=== PATIENT | male | born 1940 | race Caucasian/White ===

== ENCOUNTER 2019-07-27 19:38 | Inpatient (IN) ==
[2019-07-27] MEDS ORDERED: HYDROMET LIQUID PO ONE (20:08)
[2019-07-27 20:49] LABS: BASO# 0.03 X1000 (0.0-0.2); BASO% 0.2 % (0.0-0.8); EOS# 0.09 X1000 (0.0-0.7); EOS% 0.5 % (0.0-10.0); HEMATOCRIT 30.8 % (42.0-52.0); HEMOGLOBIN 9.3 g/dL (14.0-18.0); IMM GRAN# 0.04 X1000 (0.0-0.04); IMM GRAN% 0.2 % (0.0-0.5); LYMPH# 6.66 X1000 (1.2-3.4); LYMPH% 40.1 % (20.5-51.1); MCH 24.9 PG (27-31); MCHC 30.2 g/dL (33-37); MCV 82.4 FL (81-99); MONO# 0.96 X1000 (0.11-0.59); MONO% 5.8 % (1.7-9.3); MPV 10.1 FL (7.4-10.4); NEUT# 8.84 X1000 (1.4-6.5); NEUT% 53.2 % (42.2-75.2); PLT 321 X1000 (130-400); RBC 3.74 XMIL (4.7-6.1); RDW 18.2 % (11.5-14.5); WBC 16.62 X1000 (4.8-10.8)
[2019-07-27 20:59] LABS: INR 1.34; PROTIME 17.3 Seconds (11.0-16.0); PTT 50.5 Seconds (22.3-41.8)
[2019-07-27 21:01] LABS: AGAP 13; ALBUMIN 3.5 g/dL (3.5-5.0); ALKALINE PHOSPHATASE 90 U/L (32-122); BUN 19 mg/dL (8-22); CALCIUM 8.4 mg/dL (8.8-10.2); CHLORIDE 106 mmol/L (98-107); COSMO 285; ESTIMATED GFR > 60; GLUCOSE 128 mg/dL (70-104); GOT 19 U/L (10-34); GPT 10 U/L (10-44); POTASSIUM 3.8 mmol/L (3.5-5.1); SODIUM 141 mmol/L (136-145); TCO2 22 mmol/L (25-35); TOTAL PROTEIN 6.3 g/dL (6.3-8.3)
--- NOTE | 2019-07-27 21:05 | Diag Imaging Result Doc PS360 ---
EXAM: CHEST-2 VIEWS INDICATION: hemoptysis TECHNIQUE: 2 views COMPARISON: 10/17/2017 FINDINGS: There are very dense airspace consolidations in the left upper lobe in the lingula as well as the right lower lobe at the base of the lung. There is also probably consolidation in the left lower lobe near the base. There are small pleural effusions bilaterally. There is no evidence of pneumothorax. There appears to be focal scarring at the periphery of the right lower lung zone. There has been interval CABG. Cardiac silhouette is unremarkable. IMPRESSION: 1.Multilobar airspace consolidation, most significant in the left upper lobe as described. 2.Bilateral small effusions. Electronically signed by Gustavo Freeman 07/27/2019 9:03 PM
[2019-07-27] MEDS ORDERED: ROCEPHIN 1 GM in NS 50 ML IV ONE (21:28)
[2019-07-27] MEDS ORDERED: ZITHROMAX PO ONE (21:28)
--- NOTE | 2019-07-27 23:35 | PROVIDER DOCUMENTATION ---
This chart was entered by Aysha Freeman Scribe, acting as scribe for Ed Pool MD. HPI-Respiratory General - General Chief Complaint: Cough Stated Complaint: COUGHING UP BLOOD Time Seen by Provider: 07/27/19 19:49 Source: patient Allergies/Adverse Reactions: Patient Allergies Allergy/AdvReac Type Severity Reaction Status Date / Time No Known Allergies Allergy Verified 12/15/15 19:20 Home Medications: Home Medication List Medication Instructions Recorded Confirmed Last Taken Type Clonidine [Catapres] 0.2 mg PO BID #60 tablet 12/15/15 07/27/19 Unknown Rx Furosemide [Lasix] 40 mg PO DAILY 12/15/15 07/27/19 Unknown History Hydralazine [Apresoline] 100 mg PO DAILY 12/15/15 07/27/19 Unknown History Metoprolol [Lopressor] 25 mg PO BID 12/15/15 07/27/19 Unknown History Potassium Chloride 10 meq PO DAILY 12/15/15 07/27/19 Unknown History ATORVAstatin [Lipitor] 20 mg PO DAILY 07/27/19 07/27/19 Unknown History Apixaban [Eliquis] 1 tab PO DIRECTED 07/27/19 07/27/19 Unknown History Aspirin 81 mg PO DAILY 07/27/19 07/27/19 Unknown History Calcitriol 0.25 mg PO DIRECTED 07/27/19 07/27/19 Unknown History Fexofenadine [Aleja] 180 mg PO DAILY 07/27/19 07/27/19 Unknown History Montelukast Sodium 10 mg PO DAILY 07/27/19 07/27/19 Unknown History - History of Present Illness-Resp Nature of Presenting Problem: 79 yowm c/o sore throat, dry cough for 3-4 weeks and hemoptysis started 100 today and nausea for 1 hr. pt saw pcp 3-4 weeks ago when symptoms first started, was on antibiotics w/no relief. pt has hx of chf and arthritis. sx on heart valve. no new meds. no allergies and nonsmoker. pt on elaquis and aspirin, did not takes doses at 1930. pt went to [facility] 1 yr ago for sco0pe of throat and helped somewhat, but symptoms came back. Severity in ED: reports: moderate Onset/Duration: reports: 4-6 hours ago, other (3-4 weeks ago dry cough, sore throat) Timing: reports: still present Cough Quality/Degree: reports: productive cough, blood streaked sputum Associated Symptoms: reports: cough, sore throat, other (hemoptysis) Similar Symptoms Previously?: Yes Recently seen or treated by another doctor?: Yes (3-4 weeks ago pcp ) Review of Systems - Adult - REVIEW OF SYSTEMS - ADULT Constitutional: reports: no symptoms reported. denies: chills, fever, fatique Eyes: reports: no symptoms reported Ears, Nose, Mouth & Throat: reports: see HPI, throat pain. denies: ear pain, hoarseness, throat swelling Cardiovascular: reports: no symptoms reported Respiratory: reports: see HPI, cough, hemoptysis. denies: excessive sputum production, wheezing Gastrointestinal: reports: see HPI, nausea. denies: abdominal pain, diarrhea, vomiting Genitourinary: reports: no symptoms reported Musculoskeletal: reports: no symptoms reported Integumentary: reports: no symptoms reported Neurological: reports: no symptoms reported Psychiatric: reports: no symptoms reported Endocrine: reports: no symptoms reported Hematologic/Lymphatic: reports: no symptoms reported Allergic/Immunologic: reports: no symptoms reported All Other Systems: Reviewed and Negative Past History - Adult - PAST MEDICAL HISTORY-ADULT Review of Records: reports: Nursing Assessment Review, Medications Reviewed, Social history reviewed & non-contributory. Major Childhood Illnesses: reports: denies history Cardiovascular: reports: CAD, HTN, [place] Respiratory: reports: denies history Gastrointestinal: reports: denies history Obstetrical/Gynecological: reports: denies history Genitourinary: reports: kidney stones Musculoskeletal: reports: denies history Neurological: reports: denies history Endocrine/Immune: reports: denies history Other Conditions: reports: denies history - PRIOR SURGERIES/PROCEDURES Surgical/Procedure History: reports: cardiac stent - IMMUNIZATION STATUS Childhood Immunizations: See Nurse Assessment Flu Vaccine: See Nurse Assessment - FAMILY HISTORY Family History: reviewed, not pertinent - SOCIAL HISTORY Smoking: non-smoker Substance Use: none/never Physical Exam-General - PHYSICAL EXAM-ADULT Initial Vital Signs Reviewed: Yes - CONSTITUTIONAL General Appearance: alert, no apparent distress. negative: anxious, lethargic, slow to respond - EYES Eyes: PERRL/EOMI, pink conjunctivae - HEAD, EARS, NOSE, MOUTH & THROAT HENMT: normocephalic/atraumatic, moist mucous membranes, normal ENT inspection, pharynx normal. negative: pharyngeal erythema, tonsillar exudate - NECK Neck: non-tender, full range of motion, supple, normal inspection - RESPIRATORY Respiratory: chest non-tender, lungs clear, normal breath sounds, no pleuratic chest pain, no respiratory distress, no accessory muscle use. negative: respiratory distress, decreased breath sounds, accessory muscle use, wheezing - CARDIOVASCULAR Cardiovascular: normal peripheral pulses, regular rate, rhythm, no edema, no gallop, no JVD, systolic murmur (conjection murmure 3/6). negative: no murmur, diastolic murmur, extra beats, friction rub - GASTROINTESTINAL (ABDOMEN) Abdominal Exam: normal bowel sounds, non tender, soft, no organomegaly, no pu lsatile mass. negative: rigid, rebound, tenderness - LYMPHATIC Lymphatic: no adenopathy - MUSCULOSKELETAL Back Exam: normal inspection Extremity: normal range of motion, non-tender, normal inspection Peripheral Pulses: radial (R): 2+, radial (L): 2+ - SKIN Integumentary: normal color, normal turgor, warm/dry - NEUROLOGIC Neurologic: grossly normal, no motor/sensory deficits - PSYCHIATRIC Psych/Mental Status: normal mood/affect, normal thought content, normal thought process, oriented x 3 Progress - PLAN OF CARE/RESULTS Progress/Plan/Lab Results: Vital Signs - 8 hr 07/27/19 19:41 07/27/19 22:51 Temperature 98.9 F 98.9 F Pulse Rate 72 28 L Respiratory Rate 20 28 H Blood Pressure 189/49 199/80 O2 Sat by Pulse Oximetry 95 95 Laboratory Results - last 24 hr 07/27/19 07/27/19 07/27/19 20:34 20:34 20:34 WBC 16.62 H RBC 3.74 L Hgb 9.3 L Hct 30.8 L MCV 82.4 MCH 24.9 L MCHC 30.2 L RDW Std Deviation 18.2 H Plt Count 321 MPV 10.1 Immature Gran % (Auto) 0.2 Neut % (Auto) 53.2 Lymph % (Auto) 40.1 [place] % (Auto) 5.8 Eos % (Auto) 0.5 Baso % (Auto) 0.2 Immature Gran # (Auto) 0.04 Neut # (Auto) 8.84 H Lymph # (Auto) 6.66 H [place] # (Auto) 0.96 H Eos # (Auto) 0.09 Baso # (Auto) 0.03 PT INR PTT (Actin FS) D-Dimer, Quantitative 2.93 H Sodium 141 Potassium 3.8 Chloride 106 Carbon Dioxide 22 L Anion Gap 13 BUN 19 Creatinine 1.0 Estimated GFR/1.73 m2 > 60 BUN/Creatinine Ratio 19 Glucose 128 H Calculated Osmolality 285 Calcium 8.4 L Total Bilirubin 0.60 AST 19 ALT 10 Alkaline Phosphatase 90 Total Protein 6.3 Albumin 3.5 Globulin 3.0 Albumin/Globulin Ratio 1.0 07/27/19 20:34 WBC RBC Hgb Hct MCV MCH MCHC RDW Std Deviation Plt Count MPV Immature Gran % (Auto) Neut % (Auto) Lymph % (Auto) [place] % (Auto) Eos % (Auto) Baso % (Auto) Immature Gran # (Auto) Neut # (Auto) Lymph # (Auto) [place] # (Auto) Eos # (Auto) Baso # (Auto) PT 17.3 H INR 1.34 PTT (Actin FS) 50.5 H D-Dimer, Quantitative Sodium Potassium Chloride Carbon Dioxide Anion Gap BUN Creatinine Estimated GFR/1.73 m2 BUN/Creatinine Ratio Glucose Calculated Osmolality Calcium Total Bilirubin AST ALT Alkaline Phosphatase Total Protein Albumin Globulin Albumin/Globulin Ratio Orders Category Date Time Status CHEST-2 VIEWS [RAD] Stat Exams 07/27/19 20:[address] THORAX W/WO CONTRAST [CT] Stat Exams 07/27/19 21:20 Taken CBC WITH DIFF [HEME] Stat Lab 07/27/19 20:34 Completed COMPREHENSIVE METABOLIC PANEL [CHEM] Stat Lab 07/27/19 20:34 Completed D-DIMER [COAG] Stat Lab 07/27/19 20:34 Completed PROTIME WITH INR [COAG] Stat Lab 07/27/19 20:34 Completed PTT [COAG] Stat Lab 07/27/19 20:34 Completed Azithromycin [Zithromax] Med 07/27/19 21:28 Discontinued 500 mg PO NOW ONE CefTRIAXONE [Rocephin] 1 gm Med 07/27/19 21:28 Discontinued 0.9% Sodium Chloride Inj [Ns] 50 ml IV NOW Hydrocodone/Homatropine [Hydromet Liquid] Med 07/27/19 20:08 Discontinued 10 ml PO NOW ONE Result Diagrams: 07/27/19 20:34 07/27/19 20:34 - CT/MRI 1 CT Study: other (chest) Impression: Abnormal, See EMR Report (Impression: 1. Probable multifocal PNU in the left lung, most prominent in the left upper lobe. 2. Bilateral effusions. 3. Additional findings as above.) - CONSULTS/PCP/HOSPITALIST Notification #1 *Consult/PCP/Hospitalist*: [place] Time Discussed: 23:27 Consult Disposition: Admit Departure - Departure Date of Disposition Decision: 07/27/19 Time of Disposition Decision: 23:30 DIAGNOSIS: Cough with hemoptysis Pneumonia Qualifiers: Pneumonia type: due to unspecified organism Laterality: left Lung location: upper lobe of lung Qualified Code(s): J18.1 - Lobar pneumonia, unspecified organism Disposition: ADMITTED INPATIENT 09 Certified Medical Emergency: Emergent Condition: Good Referrals and Follow-Ups: Eren Mercado [Primary Care Provider] - - Critical Care Note This patient required my direct & personal management of CC.: No Attestation - Physician/ TAYLA Attestation Patient care was provided by Advanced Practice Provider:: No The physician spent face to face time with patient:: Yes Advanced Practice Provider documentation review:: Supervising physician onsite and consulted in the evaluation and care of this patient. The physician did have a face to face encounter with the patient. This chart was documented by the indicated scribe, (Aysha Freeman Scribe) and accurately reflects the services I performed and decisions made by me, Ed Pool MD, as attested by the provider's signature.
[2019-07-28] MEDS: DUONEB (A & A) INH SCH ×6 (03:33→23:18)
--- NOTE | 2019-07-28 06:06 | Diag Imaging Result Doc PS360 ---
EXAM: CT THORAX W/WO CONTRAST HISTORY: chest mass, hemoptysis TECHNIQUE: CT chest with and without intravenous contrast COMPARISON: None. FINDINGS: There are small bilateral pleural effusions. The one on the left measures 3.6 cm posteriorly and inferiorly in the midline where as the one on the right measures 1.8 cm. No aortic aneurysm or dissection. Moderate atherosclerosis. Heart is borderline mildly prominent. No enlarged mediastinal nodes. There are several calcified hilar nodes with scattered granuloma. There are dense infiltrates in the left upper lobe with air bronchograms. There are smaller infiltrates in the right upper lobe. Atelectasis to both lower lobes and the right middle lobe. Limited images through the upper abdomen reveal a small left renal cyst and upper pole calyceal stone measuring 2 mm. There are scattered hepatic and splenic granuloma. IMPRESSION: 1.Pneumonia most pronounced in the left upper lobe 2.Small bilateral pleural effusions with basilar atelectasis 3.Atherosclerosis with mild cardiomegaly 4.There is evidence of a prior granulomatous infection 5.A preliminary report was given at 11:04 PM on 07/27/2019 This exam was performed using automated exposure control, adjustment of mA or kV according to patient size, and/or use of iterative reconstruction technique. Electronically signed by Karsten Briscoe 07/28/2019 6:04 AM
[2019-07-28] MEDS ORDERED: ELIQUIS PO SCH (07:30)
[2019-07-28] MEDS: APRESOLINE PO SCH (08:02)
[2019-07-28] MEDS: ZITHROMAX PO SCH (08:02)
[2019-07-28] MEDS: LIPITOR PO SCH (08:02)
[2019-07-28] MEDS: ALLEGRA PO SCH (08:03)
[2019-07-28] MEDS: LASIX PO SCH (08:03)
[2019-07-28] MEDS: ROCEPHIN 1 GM in NS 50 ML IV SCH ×2 (08:03→21:01)
[2019-07-28] MEDS: CATAPRES PO SCH ×3 (08:03→17:20)
[2019-07-28] MEDS: ASPIRIN PO SCH (08:03)
[2019-07-28] MEDS: LOPRESSOR PO SCH ×3 (08:03→17:20)
[2019-07-28] MEDS: SINGULAIR PO SCH (08:12)
[2019-07-28] MEDS: KLOR-CON PO SCH (08:15)
[2019-07-28] MEDS: ELIQUIS PO SCH ×2 (08:15→21:02)
[2019-07-28] MEDS ORDERED: ROBITUSSIN PO PRN (13:35)
[2019-07-28] MEDS: ROBITUSSIN PO PRN ×2 (14:26→21:58)
[2019-07-28] MEDS ORDERED: ROBITUSSIN PO SCH (17:00)
--- NOTE | 2019-07-28 21:03 | HISTORY AND PHYSICAL ---
CHIEF COMPLAINT: Cough with blood-tinged sputum. HISTORY OF PRESENT ILLNESS: The patient is a very pleasant 79-year-old male who currently is on Eliquis secondary to open heart surgery a year and a half ago. Notes that he had been feeling fine until approximately 3 or 4 days ago. He started coughing with congestion, increased work of breathing. He started coughing up blood this morning and therefore he came to the ER. ALLERGIES: No known drug allergies. MEDICATIONS: Catapres 0.2 b.i.d., Lasix, hydralazine 100 daily, Eliquis 2.5 b.i.d., calciferol, aspirin, metoprolol 25 b.i.d., Lipitor 20 daily. PAST MEDICAL HISTORY: Coronary artery disease, hypertension, history of heart attack, history of kidney stones. He has had cardiac stenting and valve replacement. REVIEW OF SYSTEMS: As noted above. Three to four weeks of increased cough, but he has been feeling fine until about 3 days ago where symptoms began worsening. He started to have low-grade fevers, shortness of breath, increased work of breathing, dyspnea on exertion. Denies any chest pains or palpitation. Denies fevers, chills, dysuria, frequency, urgency, hesitancy, polyuria or polydipsia. Denies constipation, melena, hematochezia, hematemesis or hematuria. Denies any increased bleeding, although he does note blood-tinged sputum that started this morning. FAMILY HISTORY: Noncontributory. PHYSICAL EXAMINATION: GENERAL: Patient is awake, alert and oriented. He is in no current respiratory distress. VITAL SIGNS: Temperature 98 degrees, pulse 72, respiratory rate 20, BP 189/49, saturation 95% on 2 L. HEENT: Normocephalic. NECK: Supple. CARDIOVASCULAR: Regular rate with a 3/6 systolic ejection murmur. CHEST: Decreased but equal. No current crackles, no rhonchi, no wheezing, no accessory muscle usage, although decreased breath sounds bilaterally. ABDOMEN: Soft, nondistended, nontender. EXTREMITIES: Moves all extremities. NEUROLOGIC: No focal changes. ASSESSMENT: 1. Pneumonia with hemoptysis. 2. Hypercoagulable secondary to Eliquis. 3. Elevated D-dimer 2.9 secondary to his valve replacement. 4. Valve replacement. 5. Known coronary artery disease. 6. Hypertension. 7. Leukocytosis. 8. Anemia of chronic disease. 9. Sepsis secondary to left upper lobe pneumonia. PLAN: We are going to admit patient to the hospital. We are going to continue his Eliquis as his blood counts are stable; however, discussed with patient that if his bleeding worsens and his blood count drops, we certainly would have to stop Eliquis at that point. We will continue his home medications, place him on antibiotics, breathing treatments, oxygen and we will follow. cc: Julio C Malik MD
[2019-07-29] MEDS: DUONEB (A & A) INH SCH ×6 (03:40→23:06)
[2019-07-29 05:49] LABS: HEMATOCRIT 24.7 % (42.0-52.0); HEMOGLOBIN 7.5 g/dL (14.0-18.0); MCH 25.3 PG (27-31); MCHC 30.4 g/dL (33-37); MCV 83.2 FL (81-99); MPV 10.2 FL (7.4-10.4); RBC 2.97 XMIL (4.7-6.1); WBC 15.3 X1000 (4.8-10.8)
[2019-07-29 06:04] LABS: AGAP 13; ALKALINE PHOSPHATASE 77 U/L (32-122); BUN 20 mg/dL (8-22); CALCIUM 8.2 mg/dL (8.8-10.2); CHLORIDE 105 mmol/L (98-107); COSMO 285; CREATININE 0.9 mg/dL (0.7-1.2); ESTIMATED GFR > 60; GLUCOSE 124 mg/dL (70-104); GOT 18 U/L (10-34); GPT 9 U/L (10-44); MAGNESIUM 2.1 mg/dL (1.5-2.7); POTASSIUM 3.3 mmol/L (3.5-5.1); SODIUM 141 mmol/L (136-145); TCO2 23 mmol/L (25-35); TOTAL PROTEIN 5.8 g/dL (6.3-8.3)
--- NOTE | 2019-07-29 07:12 | Diag Imaging Result Doc PS360 ---
EXAM: CHEST-2 VIEWS 07/29/2019 HISTORY: hypoxia TECHNIQUE: PA and lateral chest COMMENT: There is dense alveolar opacity in the right lower lobe and throughout most of the left lung. The latter has worsened with respect to the apex since 07/27/2019. There is somewhat less pleural fluid on the left than on the previous study however. IMPRESSION: Bilateral pneumonia particularly in the left upper lobe. Improved left pleural effusion. Electronically signed by Wade Traore 07/29/2019 7:09 AM
[2019-07-29] MEDS ORDERED: KLOR-CON PO ONE (07:51)
[2019-07-29] MEDS: APRESOLINE PO SCH (08:35)
[2019-07-29] MEDS: KLOR-CON PO SCH (08:35)
[2019-07-29] MEDS: LIPITOR PO SCH (08:36)
[2019-07-29] MEDS: ZITHROMAX PO SCH (08:36)
[2019-07-29] MEDS: LOPRESSOR PO SCH ×3 (08:36→17:14)
[2019-07-29] MEDS: ASPIRIN PO SCH (08:36)
[2019-07-29] MEDS: SINGULAIR PO SCH (08:38)
[2019-07-29] MEDS: ELIQUIS PO SCH ×2 (08:38→21:10)
[2019-07-29] MEDS: LASIX PO SCH (08:38)
[2019-07-29] MEDS: ALLEGRA PO SCH (08:38)
[2019-07-29] MEDS: ROCEPHIN 1 GM in NS 50 ML IV SCH ×2 (08:49→21:10)
[2019-07-29] MEDS ORDERED: BENADRYL PO ONE (08:51)
[2019-07-29] MEDS ORDERED: NS 500 ML IV ONE (08:51)
[2019-07-29] MEDS: CATAPRES PO SCH ×3 (09:00→17:14)
[2019-07-29] MEDS ORDERED: LASIX IV SCH (09:00)
[2019-07-29] MEDS: CLINDAMYCIN 900 MG/D5W 900 MG/50 ML IVPB IV SCH ×2 (09:39→22:47)
[2019-07-29] MEDS: TYLENOL PO PRN (11:25)
[2019-07-29] MEDS: ROBITUSSIN PO PRN ×3 (12:24→21:40)
[2019-07-29] MEDS ORDERED: BLISTEX MEDICATED BERRY LIP BALM TOP PRN (21:18)
--- NOTE | 2019-07-30 01:53 | PROGRESS NOTE ---
DATE: 07/29/2019 SUBJECTIVE: Patient notes he is still coughing, still congested, still having hemoptysis. Denies any other bleeding or bruising. Denies fevers or chills. Notes that he is tired. Did not sleep well last night. PHYSICAL EXAMINATION: Vital Signs: Temperature 98.4 degrees, pulse 71, respiratory rate 18, BP 156/54. General: Patient is awake, alert, currently in mild respiratory distress. HEENT: Normocephalic. Neck: Supple. Cardiovascular: Regular rate. Positive murmur. Chest: Decreased breath sounds. No crackles. No wheezing currently. Patient is coughing significantly on exam. Abdomen: Soft, nondistended. Extremities: Moves all extremities. Neurologic: No changes. ASSESSMENT: 1. Pneumonia with hemoptysis. 2. Hypocoagulable secondary to Eliquis. 3. Valve replacement for which he needs to stay on blood thinners. 4. Elevated D-dimer secondary to his valve replacement. 5. Known coronary artery disease. 6. Hypertension. 7. Leukocytosis. 8. Anemia. His hemoglobin and hematocrit have actually dropped from 9 and 30 on admission to 7 and 24. Therefore, we are going to type, cross and transfuse. PLAN: We are going to stop his azithromycin, change to clindamycin. Continue Rocephin, certainly may need to adjust that as well. We will type, cross, transfuse. Continue breathing treatments. We will add Acapella to see if we can hopefully help him cough this up. Discussed him that if his blood count continues to drop again that he certainly will need to stop blood thinners at that point. cc: Julio C Malik MD
[2019-07-30] MEDS: DUONEB (A & A) INH SCH ×6 (03:22→23:21)
[2019-07-30] MEDS: ROBITUSSIN PO PRN ×3 (03:38→20:07)
[2019-07-30 06:44] LABS: HEMATOCRIT 31.9 % (42.0-52.0); HEMOGLOBIN 9.7 g/dL (14.0-18.0); MCH 25.1 PG (27-31); MCHC 30.4 g/dL (33-37); MCV 82.6 FL (81-99); MPV 10.6 FL (7.4-10.4); RBC 3.86 XMIL (4.7-6.1); RDW 17.4 % (11.5-14.5); WBC 17.35 X1000 (4.8-10.8)
[2019-07-30 06:56] LABS: AGAP 14; ALBUMIN 3.5 g/dL (3.5-5.0); ALKALINE PHOSPHATASE 87 U/L (32-122); BUN 23 mg/dL (8-22); CALCIUM 8.6 mg/dL (8.8-10.2); CHLORIDE 103 mmol/L (98-107); COSMO 285; ESTIMATED GFR > 60; GLUCOSE 138 mg/dL (70-104); GOT 27 U/L (10-34); GPT 14 U/L (10-44); MAGNESIUM 2.1 mg/dL (1.5-2.7); POTASSIUM 3.5 mmol/L (3.5-5.1); SODIUM 140 mmol/L (136-145); TCO2 23 mmol/L (25-35); TOTAL PROTEIN 6.5 g/dL (6.3-8.3)
[2019-07-30] MEDS: ZOFRAN IV PRN (08:01)
[2019-07-30] MEDS: SINGULAIR PO SCH (08:02)
[2019-07-30] MEDS: LASIX PO SCH (08:02)
[2019-07-30] MEDS: ASPIRIN PO SCH (08:02)
[2019-07-30] MEDS: LIPITOR PO SCH (08:02)
[2019-07-30] MEDS: ALLEGRA PO SCH (08:02)
[2019-07-30] MEDS: APRESOLINE PO SCH (08:02)
[2019-07-30] MEDS: CATAPRES PO SCH ×3 (08:02→16:30)
[2019-07-30] MEDS: CLINDAMYCIN 900 MG/D5W 900 MG/50 ML IVPB IV SCH ×2 (08:03→16:30)
[2019-07-30] MEDS: LOPRESSOR PO SCH ×3 (08:03→16:29)
[2019-07-30] MEDS: KLOR-CON PO SCH (08:03)
[2019-07-30] MEDS: ELIQUIS PO SCH ×2 (08:03→20:07)
[2019-07-30] MEDS: ROCEPHIN 1 GM in NS 50 ML IV SCH (08:03)
[2019-07-30 10:08] LABS: INR 1.46; PROTIME 18.5 Seconds (11.0-16.0)
[2019-07-30 10:09] LABS: PTT 47.2 Seconds (22.3-41.8)
[2019-07-30] MEDS: LACTULOSE PO PRN (12:08)
[2019-07-30] MEDS: MAXIPIME 1 GM in NS 50 ML IV SCH (12:08)
--- NOTE | 2019-07-30 12:13 | PROGRESS NOTE ---
DATE: 07/30/2019 SUBJECTIVE: Patient notes that he is starting to feel a little bit better. He is still having some significant coughing, but notes that it is actually improved from admission. Notes that he is still coughing up blood, but this too also has improved. Low-grade fever this morning. Denies any headaches or blurred vision. Denies chest pain. Notes that shortness of breath is also improving. OBJECTIVE: Vital signs: Temp 100.4 degrees, T max, pulse 73, respiratory rate 18, BP 171/64. General: Patient is awake, alert. He is in no current respiratory distress. He is lying in the bed. His color actually appears to be improving. HEENT: Normocephalic, atraumatic, PERRL. Neck: Supple. No JVD. Cardiovascular: Regular rate. Positive murmur. Chest: Improved air movement. No crackles. No wheezing. The patient actually was not noted to cough while I was in the room today. Abdomen: Soft, nondistended. Extremities: Moves all extremities. Neurologic: No changes. ASSESSMENT: 1. Leukocytosis. White count remains around 17. 2. Anemia, multifactorial. Patient has a history of leukemia in which he does not produce as much red blood cells, per the patient. He also is having some hemoptysis. We transfused him 2 units yesterday. His hemoglobin and hematocrit has remained stable since then at 9 and 31. 3. Pneumonia with hemoptysis. 4. Aortic valve replacement, currently on Eliquis. 5. Hypertension. 6. Others. PLAN: We are going to continue the patient in the hospital. Continue to follow. Antibiotics, breathing treatments. Further orders as needed. Hopefully, he will continue to improve and can discharge home over the next 2 or 3 days. cc: Julio C Malik MD
--- NOTE | 2019-07-30 15:41 | Diag Imaging Result Doc PS360 ---
EXAM: CT THORAX W/O CONTRAST 07/30/2019 HISTORY: pneumonia TECHNIQUE: This exam was performed using automated exposure control, adjustment of mA or kV according to patient size, and/or use of iterative reconstruction technique. COMMENT: The current study is compared with the previous study of 07/27/2019. There are bilateral pleural effusions. These are slightly worse than on the previous examination. There is alveolar opacity present in the left upper lobe and both lower lobes. There is also alveolar opacification of portions of the right middle lobe. The latter was not present at the time the previous study. There is markedly worsened consolidation present in the left lower lobe compared to the previous study and there is more extensive groundglass opacification in the peripheral portions of the left upper lobe. IMPRESSION: Worsened pneumonia and pleural effusions. Electronically signed by Wade Traore 07/30/2019 3:39 PM
[2019-07-31] MEDS: MAXIPIME 1 GM in NS 50 ML IV SCH ×3 (00:05→23:53)
[2019-07-31] MEDS: ROBITUSSIN PO PRN ×4 (00:46→21:17)
[2019-07-31] MEDS: CLINDAMYCIN 900 MG/D5W 900 MG/50 ML IVPB IV SCH ×3 (01:00→18:12)
[2019-07-31] MEDS: DUONEB (A & A) INH SCH ×6 (03:25→23:09)
[2019-07-31 05:45] LABS: HEMATOCRIT 28.1 % (42.0-52.0); HEMOGLOBIN 8.5 g/dL (14.0-18.0); MCH 25.3 PG (27-31); MCHC 30.2 g/dL (33-37); MCV 83.6 FL (81-99); MPV 10.5 FL (7.4-10.4); RBC 3.36 XMIL (4.7-6.1); RDW 17.6 % (11.5-14.5); WBC 15.65 X1000 (4.8-10.8)
[2019-07-31 06:04] LABS: AGAP 14; ALBUMIN 2.9 g/dL (3.5-5.0); ALKALINE PHOSPHATASE 91 U/L (32-122); BUN 27 mg/dL (8-22); CALCIUM 8.3 mg/dL (8.8-10.2); CHLORIDE 104 mmol/L (98-107); COSMO 288; CREATININE 1.1 mg/dL (0.7-1.2); ESTIMATED GFR > 60; GLUCOSE 132 mg/dL (70-104); GOT 26 U/L (10-34); GPT 14 U/L (10-44); POTASSIUM 3.5 mmol/L (3.5-5.1); SODIUM 141 mmol/L (136-145); TCO2 22 mmol/L (25-35)
[2019-07-31] MEDS ORDERED: ROCALTROL PO SCH (09:00)
[2019-07-31] MEDS: KLOR-CON PO SCH (11:16)
[2019-07-31] MEDS: LASIX PO SCH (11:16)
[2019-07-31] MEDS: ALLEGRA PO SCH (11:16)
[2019-07-31] MEDS: SINGULAIR PO SCH (11:16)
[2019-07-31] MEDS: ELIQUIS PO SCH ×2 (11:16→20:10)
[2019-07-31] MEDS: CATAPRES PO SCH ×3 (11:17→18:12)
[2019-07-31] MEDS: LOPRESSOR PO SCH ×3 (11:17→18:12)
[2019-07-31] MEDS: LIPITOR PO SCH (11:17)
[2019-07-31] MEDS: APRESOLINE PO SCH (11:17)
[2019-07-31] MEDS: ASPIRIN PO SCH (11:17)
[2019-07-31] MEDS: ZOFRAN IV PRN (18:12)
[2019-07-31] MEDS: TYLENOL PO PRN (21:17)
[2019-08-01] MEDS: CLINDAMYCIN 900 MG/D5W 900 MG/50 ML IVPB IV SCH ×2 (00:28→08:11)
[2019-08-01] MEDS: ROBITUSSIN PO PRN ×4 (01:20→17:20)
[2019-08-01] MEDS: DUONEB (A & A) INH SCH ×5 (03:12→23:45)
[2019-08-01] MEDS: LACTULOSE PO PRN (05:55)
[2019-08-01 06:44] LABS: HEMOGLOBIN 8.1 g/dL (14.0-18.0); MCH 25.2 PG (27-31); MCV 84.1 FL (81-99); MPV 10.1 FL (7.4-10.4); RBC 3.21 XMIL (4.7-6.1); RDW 17.7 % (11.5-14.5); WBC 16.53 X1000 (4.8-10.8)
[2019-08-01 07:04] LABS: AGAP 13; ALKALINE PHOSPHATASE 91 U/L (32-122); BUN 31 mg/dL (8-22); CALCIUM 8.6 mg/dL (8.8-10.2); CHLORIDE 104 mmol/L (98-107); COSMO 288; CREATININE 1.1 mg/dL (0.7-1.2); ESTIMATED GFR > 60; GLUCOSE 167 mg/dL (70-104); GOT 32 U/L (10-34); GPT 19 U/L (10-44); MAGNESIUM 2.4 mg/dL (1.5-2.7); POTASSIUM 3.5 mmol/L (3.5-5.1); SODIUM 139 mmol/L (136-145); TCO2 22 mmol/L (25-35); TOTAL PROTEIN 6.1 g/dL (6.3-8.3)
--- NOTE | 2019-08-01 07:13 | PROGRESS NOTE ---
DATE: 07/31/2019 SUBJECTIVE: Patient notes that his cough is improving. He actually only had to get a new cup once last night, which is a big improvement from before. He is still having a productive cough, still having some blood-tinged sputum, although it seems to be improving. Denies any fevers or chills. PHYSICAL EXAMINATION: Vital Signs: Temperature 98.5, pulse 75, respiratory rate 18, blood pressure 115/57. General: Patient is awake, alert, currently in no respiratory distress. HEENT: Normocephalic. Neck: Supple. Cardiovascular: Regular rate. Chest: No crackles, no wheezing. Better air movement. Abdomen: Soft, nondistended. Extremities: Moves all extremities. Neurologic: No changes. ASSESSMENT: 1. Pneumonia with hemoptysis. 2. Anemia, stable at 8 and 28. 3. Leukocytosis, stable, still at 15. 4. Known coronary artery disease. 5. Sepsis, resolved. 6. Aortic valve replacement, currently on Eliquis. PLAN: Patient's CT yesterday was a little bit worse. We had recently changed to clindamycin. We stopped his Rocephin and started cefepime. He does seem to be a little bit better today. We are going to continue breathing treatments and we will follow. We will continue Eliquis due to the valve replacement. cc: Julio C Malik MD
[2019-08-01] MEDS: LASIX PO SCH (08:10)
[2019-08-01] MEDS: KLOR-CON PO SCH (08:10)
[2019-08-01] MEDS: ALLEGRA PO SCH (08:11)
[2019-08-01] MEDS: APRESOLINE PO SCH (08:11)
[2019-08-01] MEDS: ELIQUIS PO SCH (08:11)
[2019-08-01] MEDS: ASPIRIN PO SCH (08:11)
[2019-08-01] MEDS: LIPITOR PO SCH (08:11)
[2019-08-01] MEDS: CATAPRES PO SCH ×3 (08:11→18:40)
[2019-08-01] MEDS: LOPRESSOR PO SCH ×3 (08:11→18:40)
[2019-08-01] MEDS: SINGULAIR PO SCH (08:11)
[2019-08-01] MEDS: MAXIPIME 1 GM in NS 50 ML IV SCH (12:17)
[2019-08-01] MEDS ORDERED: VANCOMYCIN IV PER PHARMACY MISC SCH (12:45)
[2019-08-01] MEDS ORDERED: VANCOMYCIN 2,000 MG in NS 500 ML IV SCH (14:00)
--- NOTE | 2019-08-01 18:29 | PROGRESS NOTE ---
DATE: 08/01/2019 SUBJECTIVE: The patient reports that his cough and shortness of breath are getting worse. He continues to have hemoptysis. According to him, it is more bloody today. Denies any other complaints. OBJECTIVE: Vital Signs: Temperature 98.1 degrees, heart rate 72, respiratory rate 20, blood pressure 112/51, O2 saturation 95% on 2 L nasal cannula. General: This is a chronically ill- appearing, 79-year-old male, lying in bed, in no acute distress. Cardiovascular: S1, S2 heard. No murmurs, gallops, or rubs. Regular rate and rhythm. Respiratory: Minimal coarse breath sounds noted in both pulmonary bases. Patient not using any accessory muscles or having work of breathing. Abdomen: Soft, nondistended, nontender to palpation. Bowel sounds present. No organomegaly. Extremities: No clubbing, cyanosis, or edema. Peripheral pulses present in both legs. Neurological: The patient is alert, oriented x3. Moves all 4 extremities. LABORATORY DATA: White cell count 16.53, hemoglobin 8.1, hematocrit 27.0, platelets 336,000 with BMP that is basically showing normal renal function. Calcium 8.6. ASSESSMENT AND PLAN: 1. Community-acquired pneumonia with hemoptysis. The patient has been started on clindamycin and ceftriaxone, but unfortunately this patient is not getting better. The CT of the chest shows worsening pneumonia. Considering that he is getting more short of breath and imaging that is not improving, I will transfer this patient to [facility] for the evaluation by pulmonary. The patient has been changed to cefepime and will stop clindamycin and start vancomycin per pharmacy. We will check an ABG and an x-ray PA and lateral and we will go from there. 2. Hemoptysis. At this point, the patient is on Eliquis. He is taking that medication for this bovine aortic valve replacement. I am going to check an echocardiogram if not a recent one has been order. We will continue to monitor. 3. Anemia. Hemoglobin has been dropping slowly from 2 days ago from 9.7 the day before yesterday, 8.5 yesterday and today 8.1. He has been transfused 2 units of blood. We will continue to monitor. 4. Coronary artery disease. At this point, the patient is stable not complaining of any chest pain. We will continue to monitor. 5. Disposition. As we mentioned before, we will transfer this patient to [facility] for further evaluation by Pulmonary. cc: Alfie Dunaway MD
[2019-08-01] MEDS ORDERED: ZOFRAN IV PRN (20:07)
[2019-08-01] MEDS ORDERED: TYLENOL PO PRN (20:07)
[2019-08-01] MEDS ORDERED: ROBITUSSIN PO PRN (20:09)
[2019-08-01] MEDS ORDERED: LACTULOSE PO PRN (20:14)
[2019-08-01] MEDS ORDERED: LASIX IV SCH (20:15)
[2019-08-01] MEDS ORDERED: BLISTEX MEDICATED BERRY LIP BALM TOP PRN (20:16)
[2019-08-01] MEDS ORDERED: ELIQUIS PO SCH (21:00)
--- NOTE | 2019-08-01 22:21 | PROGRESS NOTE ---
DATE: 08/01/2019 ADDENDUM TO PREVIOUSLY DICTATED PROGRESS NOTE: Mr. Gonzalez was transferred from [facility] for ongoing hemoptysis and bilateral multifocal pneumonia. SUBJECTIVE: He continues to have ongoing hemoptysis. He denies any chest pain. He is not feeling short of breath at rest, but he states otherwise he is feeling terrible. We discussed about hemoptysis, holding his nighttime Eliquis. I also assured him that I will call education assistant in this hospital or contact his education assistant outpatient. VITALS: Currently, temperature of 98.6 degrees, pulse 78, respiratory rate 18, blood pressure 150/60, saturating 92% on 3 L nasal cannula. OBJECTIVE: He has fresh blood in the back of the throat. He has bilateral crackles diffusely of lung mireles. He is not having any wheezes. ASSESSMENT: 1. Acute hypoxic respiratory failure due to bilateral multifocal pneumonia. 2. Hemoptysis in the setting of Eliquis use and bilateral pneumonia. 3. Acute blood loss anemia due to hemoptysis. 4. 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 On baby aspirin and Eliquis. History of CHF. 5. History of chronic lymphoid leukemia. PLAN: I will hold his nighttime Eliquis dose considering his ongoing hemoptysis. I will transfer him to a PVC unit. I will contact Cardiology tomorrow morning. His antibiotic regimen has been broadened to intravenous vancomycin and cefepime, which I will continue him on. Plan of care discussed with him. His questions have been answered. He is in agreement. I had a discussion about code status with him and he mentions that he would not want any chest compression, shock, intubation, or ventilator, and we will honor his wishes. His code status has been changed to DNR level 1. cc: MD NIR Barone
[2019-08-02] MEDS ORDERED: MAXIPIME 1 GM in NS 50 ML IV SCH ×2
[2019-08-02] MEDS: DUONEB (A & A) INH SCH ×7 (03:40→23:50)
[2019-08-02 06:10] LABS: BASO# 0.02 X1000 (0.0-0.2); BASO% 0.1 % (0.0-0.8); EOS# 0.28 X1000 (0.0-0.7); EOS% 1.7 % (0.0-10.0); HEMATOCRIT 27.3 % (42.0-52.0); HEMOGLOBIN 8.4 g/dL (14.0-18.0); IMM GRAN# 0.09 X1000 (0.0-0.04); IMM GRAN% 0.6 % (0.0-0.5); LYMPH# 6.08 X1000 (1.2-3.4); LYMPH% 37.6 % (20.5-51.1); MCH 25.8 PG (27-31); MCHC 30.8 g/dL (33-37); MONO# 0.91 X1000 (0.11-0.59); MONO% 5.6 % (1.7-9.3); MPV 10.2 FL (7.4-10.4); NEUT# 8.81 X1000 (1.4-6.5); NEUT% 54.4 % (42.2-75.2); PLT 374 X1000 (130-400); RBC 3.25 XMIL (4.7-6.1); RDW 18.1 % (11.5-14.5); WBC 16.19 X1000 (4.8-10.8)
[2019-08-02 06:26] LABS: AGAP 14; ALBUMIN 2.8 g/dL (3.5-5.0); BUN 33 mg/dL (8-22); CALCIUM 8.7 mg/dL (8.8-10.2); CHLORIDE 102 mmol/L (98-107); COSMO 285; ESTIMATED GFR > 60; GLUCOSE 110 mg/dL (70-104); PHOSPHORUS 3.8 mg/dL (2.7-4.5); POTASSIUM 3.9 mmol/L (3.5-5.1); SODIUM 139 mmol/L (136-145); TCO2 23 mmol/L (25-35)
[2019-08-02 06:37] LABS: EOS 2 % (1-10); LYMPHS 37 % (21-51); MONO 4 % (1-9); SEGS 57 % (42-75)
[2019-08-02] MEDS ORDERED: LASIX IV ONE ×2 (06:48→20:00)
--- NOTE | 2019-08-02 07:39 | EKG Report ---
Test Performed on : 08/02/2019 06:09:51 AM Test Reason : Baseline heart rhythm Blood Pressure : / mmHG Vent. Rate : 077 BPM Atrial Rate : 077 BPM P-R Int : 182 ms QRS Dur : 098 ms QT Int : 400 ms P-R-T Axes : 013 033 052 degrees QTc Int : 452 ms Sinus rhythm. with premature atrial complexes. with aberrant conduction. Nonspecific T wave abnormality Abnormal ECG When compared with ECG of 18-OCT-2017 13:24, Vent. rate has increased BY 30 BPM Confirmed by Sole GUTIERREZ, Daniel ([id number]) on 08/02/2019 8:12:07 AM
[2019-08-02] MEDS: ZITHROMAX 500 MG/NS 500 MG/250 ML IVPB IV SCH (07:56)
[2019-08-02] MEDS: SINGULAIR PO SCH (08:03)
[2019-08-02] MEDS: KLOR-CON PO SCH (08:03)
[2019-08-02] MEDS: LIPITOR PO SCH (08:03)
[2019-08-02] MEDS: CATAPRES PO SCH ×3 (08:04→17:14)
[2019-08-02] MEDS: LOPRESSOR PO SCH ×3 (08:04→17:14)
[2019-08-02] MEDS: ZOFRAN IV PRN (08:09)
--- NOTE | 2019-08-02 08:22 | Diag Imaging Result Doc PS360 ---
EXAM: CHEST-PORTABLE INDICATION: Dyspnea TECHNIQUE: One view COMPARISON: 07/29/2019 FINDINGS: There has been worsening of dense airspace consolidation on the right. Specifically, there is more extensive consolidation on the right in the mid lung zone. Consolidation throughout most of the left lung is again noted and may also be slightly worse. Cardiac silhouette is stable. IMPRESSION: Interval worsening of dense infiltrates bilaterally. Electronically signed by Gustavo Freeman 08/02/2019 8:20 AM
[2019-08-02 08:37] LABS: URINE SOURCE CATH
[2019-08-02 08:55] LABS: BILIRUBIN URINE NEGATIVE (NEGATIVE); BLOOD URINE TRACE (NEGATIVE); COLOR YELLOW; GLUCOSE URINE NEGATIVE (NEGATIVE); KETONE URINE TRACE mg/dL (NEGATIVE); LEUKOCYTES URINE NEGATIVE (NEGATIVE); NITRITE URINE NEGATIVE (NEGATIVE); PH URINE 5.5; PROTEIN URINE 30 mg/dL (NEGATIVE); SP GRAVITY URINE 1.013; TURBIDITY URINE CLEAR (CLEAR); UROBILINOGEN URINE NORMAL (NORMAL)
[2019-08-02 08:56] LABS: UR EPITHELIAL CELLS <10 /HPF (<10); URINE BACTERIA NEGATIVE /HPF; URINE RBC <10 /HPF (<10); URINE WBC <10 /HPF (<10)
[2019-08-02] MEDS ORDERED: ASPIRIN PO SCH (09:00)
[2019-08-02] MEDS ORDERED: LASIX PO SCH (09:00)
[2019-08-02] MEDS ORDERED: APRESOLINE PO SCH (09:00)
[2019-08-02] MEDS ORDERED: ROCALTROL PO SCH (09:00)
[2019-08-02] MEDS: ALLEGRA PO SCH (09:37)
--- NOTE | 2019-08-02 10:01 | PROGRESS NOTE ---
DATE: 08/02/2019 INTERVAL HISTORY: Patient was transferred to PVC unit. He did not have any other overnight events. SUBJECTIVE: Mr. Osborne states he is feeling more short of breath in the morning time than he did in the afternoon time, and he appears tachypneic. He continues to have hemoptysis. He denies any chest pain. He denies nausea, vomiting, abdominal pain. We discussed about worsening lung examination, consulting pulmonology and cardiology, holding Eliquis, adding more antibiotics, starting him on IV diuresis, and getting echocardiogram. He understood it. We also discussed about starting him on high oxygen mask if his oxygen levels are decreased, and he agrees currently. VITALS: Currently, temperature of 98.5 degrees, pulse 80, respiratory rate 21, blood pressure 170/59. His oxygen saturation is 85% on 4 L nasal cannula. PHYSICAL EXAMINATION: He appears tachypneic and in mild distress. Oral cavity is moist. He had some flecks of hemoptysis on the posterior pharyngeal wall. He has no wheeze or rhonchi. He has diffuse inspiratory crackles, especially affecting infrascapular region. Cardiovascular: S1, S2 normal. Appears irregularly irregular. He has a systolic murmur affecting the right second intercostal space. No rub or gallop. Abdomen: Soft, nontender. No hepatojugular reflex. He has bilateral lower extremity edema extending up to knee level. Input and output only had -500 mL yesterday. LABS: Suggestive of leukocytosis, normocytic anemia, normal platelet count. He does have elevation of BUN and creatinine. No positive microbiological data. IMAGING: Electrocardiogram was performed which had a sinus rhythm with premature atrial complexes with aberrant conduction. ASSESSMENT AND PLAN: 1. Acute hypoxic respiratory failure due to bilateral multifocal pneumonia and lung infiltrate/alveolar hemorrhage. Continue intravenous vancomycin and cefepime. Add Azithromycin. Follow up repeat sputum culture results, urine streptococcus antigen, beta glucan levels. Increase amount of oxygen and give a stat dose of Lasix. I discussed that with the nurse. 2. Acute congestive heart failure exacerbation with worsening pedal edema. Increase Lasix to intravenous. Follow up with echocardiogram. He had a history of coronary artery bypass graft and bovine aortic valve replacement in 2018. I am continuing his home aspirin, atorvastatin, metoprolol, and hydralazine. We will adjust medications according to his course. I am holding his Eliquis. 3. Hemoptysis leading to acute blood loss anemia, status post 2 units of packed red blood cells. He continues to have ongoing hemoptysis. This is likely in the setting of a multifocal pneumonia, use of aspirin with Eliquis and suspected alveolar hemorrhage. The indication for Eliquis is not entirely clear to me. He denies known history of deep venous thrombosis or pulmonary embolism. He does not have metal prosthetic heart valve. He does not entirely remember if he has any paroxysmal abnormal heart rhythm. Considering his ongoing hemoptysis and worsening respiratory status, I am holding Eliquis and I will consult the cardiology team. I will also follow up with an echocardiogram. 4. History of chronic lymphoid leukemia. 5. Disposition. The patient's condition is tenuous, considering his respiratory status. He has explicitly mentioned that his code status is a Do Not Resuscitate level 1. I will continue to monitor him in the [facility]. I discussed with him about his tenuous condition and worsening lung status, and answered all of his questions. cc: Ifeanyi Tesfaye MD MTDD
[2019-08-02 11:39] LABS: ALLEN TEST YES; BE 1.2 mmoll (-3.0-3.0); BLOOD TYPE ARTERIAL; HCO3-(ACT) 25.8 mmoll (20.0-26.0); METHB 0.7 % (0.0-1.5); O2(CT) 12.1 mL/dL (15.0-23.0); O2HB 93.9 % (95.0-99.0); PCO2(98.6) 35 mmHg (35-45); PO2(98.6) 66 mmHg (60-100); SAMPLE BLOOD; SAO2 96.4 % (95.0-100.0); THB 9.1 g/dL (11.5-17.4); pH(98.6) 7.46 (7.35-7.45)
[2019-08-02 11:41] LABS: MODALITY VENTIMASK
[2019-08-02 13:48] LABS: INR 1.42; PROTIME 17.6 Seconds (11.0-16.0)
[2019-08-02] MEDS ORDERED: LASIX IV SCH (14:00)
[2019-08-02] MEDS ORDERED: MAXIPIME 2 GM/NS 2 GM/100 ML IVPB IV SCH ×2 (15:00→21:00)
[2019-08-02] MEDS ORDERED: VANCOMYCIN 2,000 MG in NS 500 ML IV SCH (15:00)
--- NOTE | 2019-08-02 15:23 | PROGRESS NOTE ---
DATE: 08/02/2019 I evaluated the patient at bedside again. Apparently, patient had worsening shortness of breath and pulmonary team had reevaluated the patient and was started on BiPAP. I was informed that he was taking Eliquis, likely from paroxysmal atrial fibrillation. I evaluated him at bedside. He is comfortable on BiPAP. His [id number] is at bedside. We discussed about alveolar hemorrhage, worsening pneumonia, pulmonary edema. We discussed about transferring him to ICU. They understand his critical condition. I answered all of their questions. I will also get stat coagulations and have a discussion with Pulmonology if he would be a candidate for any fresh frozen plasma. I will also get connective tissue cascade. cc: Ifeanyi Tesfaye MD
--- NOTE | 2019-08-02 19:05 | CONSULTATION ---
DATE OF CONSULTATION: 08/02/2019 IMPRESSION: 1. Progressive respiratory failure. 2. Suspect bilateral pneumonia with infiltrates progressing despite initial antibiotic coverage. Given history of chronic lymphocytic leukemia, consider more unusual pathogens. 3. Aortic valve disorder. Patient is status post aortic valve replacement with bioprosthesis in October 2017. He also had coronary artery bypass at that surgery. 4. Atherosclerotic coronary disease. Patient is status post coronary artery bypass grafting x2 vessels with his aortic valve replacement in October 2017. 5. Postoperative atrial fibrillation. Patient has continued on Eliquis since his cardiac surgery. 6. Hypertension. 7. Hyperlipidemia. RECOMMENDATIONS: 1. Agree with Pulmonary consultation. 2. Suggest also Infectious Disease consultation. 3. Limited diuresis until further data from cardiovascular standpoint. Echocardiography to be obtained. 4. Favor transferring patient to intensive care unit given his progressive respiratory difficulties in the face of treatment. HISTORY: This 79-year-old, white male, with past history of aortic valve disorder, atherosclerotic coronary disease, previous coronary artery bypass surgery with aortic valve replacement (bioprosthesis) in October 2017, hypertension, hyperlipidemia, and chronic lymphocytic leukemia, was admitted through [facility] several days ago, with progressive dyspnea and hemoptysis. He had bilateral infiltrates and was started on treatment for pneumonia. He has not improved, and is in fact, progressively getting worse, and was transferred over to [facility]. He has had fairly striking hemoptysis. He relates that he had tendency for shortness of breath, particularly exertional shortness of breath for about a week, and then started having hemoptysis. There has been no orthopnea nor angina. He has had some low-grade fever noted since admission, but he was unaware of this prior to hospitalization. He denies any chills. There has been no chest pain. He has been on Eliquis since his cardiac surgery because of postoperative atrial fibrillation. PAST MEDICAL HISTORY: 1. Aortic valve disorder/aortic stenosis. Patient is status post aortic valve replacement with bioprosthesis along with coronary artery bypass surgery in October 2017. 2. Atherosclerotic coronary disease. Patient is status post coronary artery bypass grafting x2 vessels, October 2017, along with aortic valve replacement. 3. Hypertension. 4. Hyperlipidemia. 5. Chronic lymphocytic leukemia. 6. Nephrolithiasis. 7. History of hepatitis A in the past. PAST SURGICAL HISTORY: Also includes knee replacement and appendectomy. ALLERGIES: He has no known drug allergies. MEDICATIONS PRIOR TO ADMISSION: As listed. SOCIAL HISTORY: He is . He is retired. He does not smoke. He does not use alcohol. FAMILY HISTORY: Negative for premature coronary disease. There is a family history of coronary disease with older age of clinical onset. REVIEW OF SYSTEMS: Pulmonary: Noteworthy for dyspnea and hemoptysis. There has been no chest pain. Gastrointestinal: Noncontributory. Constitutional: Recent fevers, otherwise negative. Remainder of review of systems negative/noncontributory with 14-total systems reviewed. PHYSICAL EXAMINATION: General: This is an older white male with increased respiratory rate despite oxygen per mask. Vital Signs: Blood pressure 171/69, heart rate 83, respiratory rate 30, oxygen saturation 95% on Venturi mask at 50%. HEENT: Extraoculars movements appear intact. Mucous membranes are moist. Neck: Supple. Jugular venous distention suggests jugular venous pressure around 8 to 10. There are no carotid bruits. Chest: Auscultation of chest reveals bilateral inspiratory crackles. Cardiac: Regular rate and rhythm with a grade 2/6 crescendo/decrescendo systolic murmur at the right upper sternal border and apex, as well as the left sternal border. Gallop could not be appreciated. Abdomen: Soft. Bowel sounds audible. Extremities: Mild pretibial edema slightly worse on the right lower extremity. Neurologic: Alert and fully oriented. Speech is fluent. He moves all 4 extremities equally well. Skin: Warm and dry. Psychiatric: Mildly anxious. PERTINENT DATA: Twelve-lead EKG demonstrates atrial fibrillation with occasional premature ventricular, aberrantly conducted complex, and nonspecific T-wave abnormality. LABORATORY DATA: Includes white blood cell count 16.19, hematocrit 27.3, hemoglobin 8.4, platelet count 374,000. Sodium 139, potassium 3.9, chloride 102, carbon dioxide 23, BUN 33, creatinine 1.2, glucose 110, albumin 2.8. cc: Bridger Kee MD
--- NOTE | 2019-08-02 19:42 | INFECTIOUS DISEASE CONSULT REP ---
DATE: 08/02/2019 CONCLUSION: The patient is wearing a BiPAP mask and unfortunately I cannot get a history from him. The information I did get was through the computer. Conclusion: The patient has bilateral consolidations. I think this could be due to an infection. The patient may have an immunoglobulin deficiency. RECOMMENDATIONS: I agree with treating the patient with azithromycin, cefepime and vancomycin. I have increased the dose of cefepime to 2 g IV every 8 hours and I have ordered immunoglobulin levels. DISCUSSION: The patient was doing well until approximately 3 to 4 days before he came into the hospital. He started coughing with congestion and he was dyspneic. He also noted that he has been coughing up blood. ALLERGIES: He has no known drug allergies. MEDICATIONS: Taken at home include Catapres, Lasix, hydralazine, Eliquis, calciferol, metoprolol and Lipitor. PAST MEDICAL HISTORY: Positive for coronary artery disease, hypertension, myocardial infarction, kidney stones. PAST SURGICAL HISTORY: Patient has had cardiac stenting and valve replacement. REVIEW OF SYSTEMS: When I attempted to take a review of systems from the patient, he did not want to give me answers by shaking his head and he is unable to talk because he is wearing a BiPAP mask. FAMILY HISTORY: Said to be noncontributory. CURRENT LABORATORY AND RADIOGRAPHIC FINDINGS: The patient's CBC shows a white count of 16,190, hemoglobin 8.4, platelet count 374,000. The patient's creatinine is 1. GFR is greater than 60. Blood gases show a pH of 7.46, a PO2 of 66, and a pCO2 of 35. Blood cultures are negative. Sputum grew a normal maryan. Repeat sputum culture is pending. Chest x-ray shows worsening bilateral consolidation. Urinalysis showed no white cells or bacteria. PHYSICAL EXAMINATION: Vital Signs: Temperature is 97.4 degrees, pulse 59, respirations 16, blood pressure is 134/65. Patient weighs 199 pounds. General: This is an ill-appearing elderly male. As mentioned above, he is wearing a BiPAP mask and he still looks somewhat dyspneic. Head/eyes/ears/nose/throat: The patient has a BiPAP mask. He was able to hear my spoken words. He appeared to be able to see near objects. I could not get a really good look into the patient's mouth. However, there was some tissue beside him and he had been spitting up secretions and they were sanguinous. Neck: No meningismus. Lungs: Clear to auscultation. Cardiovascular: Heart rate is regular with a systolic murmur. Abdomen: Soft and not tender. Neurologic: The patient is awake. He did move his extremities to request. He does not have a tremor. Integument: No rash noted. Thank you for the consult. cc: Alexi Zavaleta MD
[2019-08-02] MEDS: MAXIPIME 1 GM in NS 50 ML IV SCH (20:58)
[2019-08-02] MEDS ORDERED: MAXIPIME 2 GM in NS 50 ML IV SCH (21:00)
--- NOTE | 2019-08-02 22:33 | CONSULTATION ---
DATE OF CONSULTATION: 08/02/2019 REQUESTING PROVIDER: Dr. Alfie Valverde. REASON FOR CONSULTATION: Acute respiratory failure, worsening of hemoptysis. HISTORY OF PRESENT ILLNESS: This is a 79-year-old male with a medical history of coronary artery disease, congestive heart failure, hypertension, hyperlipidemia, carotid arterial disease, aortic wall stenosis with insufficiency and right knee degenerative disease. He was transferred from [place] to [facility] in our facility yesterday with ongoing hemoptysis and worsening bilateral multifocal pneumonia despite of ongoing the antibiotic therapies. The patient currently is lying in bed with mild respiratory distress noted. He is on Venturi mask with FiO2 50%. He states his shortness of breath is getting better with the Venturi mask, but he still feels terrible. He has a basin at the bedside table filled with black-colored sputum, which patient reported was from this morning. It contains about 1 to 2 tablespoons of blood noted. He reports he coughed up some bright red blood at times and he did have some occasional spotty hemoptysis far before last when he presented to [place] ER. The patient reported that it was not significant so he really did not keep that in his mind. He did report it to his family doctor, but no any action has been taken for that. Here, last , his cough was getting worse and he coughed up a lot more blood than he usually does. He has been on clindamycin and ceftriaxone in the [place] since admission. CT on 07/30/2019 showed worsening pneumonia and bilateral pleural effusions and the antibiotic therapy has been switched to cefepime and vancomycin since yesterday. The patient reports no chest pain, nausea, vomiting, bowel habit change, urination discomfort, wheezing, witnessed snoring. He does have fever at times since admission. The last episode of fever was on the evening of 07/31/2019. He did complain of some constipation currently. He has shortness of breath which has been worsened since admission despite of ongoing antibiotic therapy and some chronic pedal edema. PAST MEDICAL AND SURGICAL HISTORY: 1. Significant coronary artery disease and aortic wall of stenosis with insufficiency, status post PCI with drug-eluting stent to the left anterior descending in 2005 and coronary artery bypass graft with a bovine aortic wall replacement in 2018. Patient has been on eliquis and baby aspirin since CABG in 2018. 2. History of congestive heart failure. 3. Hypertension. 4. Hyperlipidemia. 5. History of carotid arterial disease with 40 to 59 percent disease in the right internal carotid and 0 to 39 percent in the left internal carotid in 2010. 6. Right knee degenerative disease status post right knee replacement in April 2015. 7. Status post appendicectomy. 8. Status post epistaxis cauterizations. SOCIAL HISTORY: The patient lives at home with his family. 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 He has no history of alcohol, tobacco, or illicit drug use. FAMILY HISTORY: Positive for hypertension. ALLERGIES: No known drug allergies. REVIEW OF SYSTEMS: A 10-point review of systems was conducted and the pertinent is listed within the HPI. Otherwise noncontributory. PHYSICAL EXAMINATION: Vital Signs: Temperature 98.5 degrees, blood pressure 171/69, pulse 83, respiratory rate 37, oxygen saturation 95% on Venturi mask with FiO2 50%. General Appearance: Appears very weak and pale, lying in bed with some mild respiratory distress noted. HEENT: Atraumatic, normocephalic. Trachea midline. Mucosa pink and moist. Respiratory: Tachypneic. Mildly labile with increased work of breathing, but no obvious accessory muscle use. Symmetrical excursion. Auscultation revealed diminished breathing sounds bilaterally and only inspiratory crackles bilaterally with left side worse than the right side. Cardiovascular: S1 and S2 noted with irregularly irregular rate and rhythm and significant systolic murmur. Gastrointestinal: Soft, nontender, nondistended. Normoactive bowel sounds in all 4 quadrants. Extremities: Bilateral lower extremity pitting edema extending up to the knee level, 1 to 2+. No cyanosis. No clubbing. Dorsalis pedis diminished bilaterally. Neurologic: Alert and oriented x3. Speech fluent. Follows commands. LAB DATA: White blood cells 16.19, hemoglobin 8.4, hematocrit 27.3, platelet 374,000. Sodium 139, potassium 3.9, chloride 102, carbon dioxide 23, BUN 33, creatinine 1.0, glucose 110. IMAGING DATA: Chest x-ray this morning showed interval worsening of dense infiltrates bilaterally with more extensive consolidation on the right in the mid lung zone and slightly worsened consolidation throughout most of the left lung. ASSESSMENT: This is a 79-year-old male with a medical history of significant coronary artery disease, aortic wall stenosis with insufficiency, congestive heart failure, hypertension, hyperlipidemia, carotid arterial disease and right knee degenerative disease. He was transferred from [place] to the [facility] in our facility yesterday with ongoing hemoptysis and worsening bilateral pneumonia despite of ongoing antibiotic therapy. 1. Acute hypoxic respiratory failure. 2. Bilateral multifocal pneumonia with hemoptysis. 3. Acute blood loss anemia. 4. Congestive heart failure exacerbation. 5. Do not resuscitate 1. PLAN: 1. Start on BiPAP. I explained the benefits of BiPAP to the patient. He states he never use BiPAP before, but he would like to try it. All other questions have been answered. 2. We will check ABG and proBNP and calcitonin. 3. Continue antibiotics and bronchodilators. 4. Follow up with CBC, CMP, sputum culture and blood culture. 5. Dr. Kee, the warehouse administrative assistant and Dr. Zavaleta, the Infectious Disease specialists are on board. 6. Further recommendation pending hospital course. Thank you for the courtesy of this consult. Dictated by MARIBELL Perez for [place] Loyd MD cc: MARIBELL Perez MD [facility]
--- NOTE | 2019-08-02 22:42 | PULMONOLOGY CONSULTATION ---
DATE: 08/02/2019 REASON FOR CONSULTATION: Pneumonia and respiratory failure. HISTORY OF PRESENT ILLNESS: Mr. Osborne is a 79-year-old male with chronic lymphoid leukemia, coronary artery disease with prior bypass surgery, history of aortic valve replacement in October of 2017, who has been on Eliquis since that time. The patient reports he has had some cough with some blood-tinged sputum for approximately 2 weeks. The patient presented to the emergency room 07/17/2019 after receiving a course of antibiotics without improvement. The patient complained of significant hemoptysis. He underwent a CT scan of the thorax which revealed pneumonia which is most dominant in the left upper lobe with small bilateral effusions. He was initiated on antibiotics. His CT scan was repeated 07/30/2019 which revealed worsening bilateral infiltrates. He has had increasing cough and bloody sputum. His Eliquis was discontinued and he reports the bleeding is decreasing. PAST MEDICAL HISTORY: 1. CLL without definitive treatment. 2. Coronary artery disease status post bypass in 2018. 3. Status post aortic valve replacement. 4. Hypertension. 5. Dyslipidemia. 6. Nephrolithiasis. SOCIAL HISTORY: He is a nonsmoker. Denies significant alcohol use. He did work in the chemical industry. REVIEW OF SYSTEMS: Notable for fatigue, cough with bloody sputum. Generalized weakness. PHYSICAL EXAMINATION: General: Reveals a well-developed, well-nourished male who appears his stated age in no distress. He currently has a face mask on without increased work of breathing. He has some dried blood in a bedside spittoon. He reports no appetite. Vital Signs: Blood pressure 142/64, heart rate 70, respiratory rate 22, oxygen saturation 93% on Venturi mask. HEENT: Pupils are equal and reactive. Oropharynx appears clear. Neck: Supple. Chest: Reveals coarse rhonchi bilaterally. Cardiac: S1, S2. Abdomen: Soft with diminished bowel sounds. Extremities: Without edema. LABORATORIES: Chest reveals areas of dense consolidation bilaterally. Influenza screen is negative. Sputum culture is pending. Sputum culture obtained on 07/28/2019 revealed normal maryan. Sodium 139, potassium 3.9, chloride 102, bicarbonate is 23, BUN 33, creatinine 1.0. White blood count 16.19, hemoglobin 8.4, platelet count 374,000. Arterial blood gas reveals a pH 7.46, pCO2 of 35, PO2 of 66. IMPRESSION: A 79-year-old with: 1. Hemoptysis. 2. Acute hypoxemic respiratory failure. 3. Chronic lymphoid leukemia. 4. History of coronary artery disease. 5. History of prostatic valve replacement. DISCUSSION: A 79-year-old with problems outlined above. The patient's history began several weeks prior to admission and included bloody sputum. He clearly is having a component of alveolar hemorrhage, but it is not certain if he has an underlying infectious process. The patient does have CLL and is at increased risk for pneumonia. RECOMMENDATIONS: 1. Discontinue Eliquis as you have done. 2. Broad-spectrum antibiotics as outlined by Dr. Alexi Zavaleta. 3. Continue oxygen/BiPAP for hypoxemic respiratory failure. 4. Agree with plans to check immunoglobulin level. 5. Send vasculitic profile. Would check for lupus, Micaela's, and Goodpasture syndrome although I think that these are less likely. 6. DNR level 1 at patient's request. He does not want intubation or aggressive cardiac resuscitation and would prefer a natural if he continues to decline. cc: Silvestre Godinez MD
[2019-08-03] MEDS: ZOFRAN IV PRN (03:35)
[2019-08-03] MEDS: DUONEB (A & A) INH SCH ×3 (03:46→11:13)
--- NOTE | 2019-08-03 07:23 | EKG Report ---
Test Performed on : 08/03/2019 06:42:41 AM Test Reason : dyspnea Blood Pressure : / mmHG Vent. Rate : 078 BPM Atrial Rate : 078 BPM P-R Int : 360 ms QRS Dur : 100 ms QT Int : 378 ms P-R-T Axes : 000 041 155 degrees QTc Int : 430 ms Sinus rhythm. with 1st degree AV block. Nonspecific ST and T wave abnormality Abnormal ECG When compared with ECG of 02-AUG-2019 06:09, aberrant conduction. is no longer present [place] interval has increased Nonspecific T wave abnormality, worse in Inferior leads Confirmed by Sole GUTIERREZ, Daniel ([id number]) on 08/03/2019 8:22:52 AM
[2019-08-03] MEDS: SINGULAIR PO SCH (08:01)
[2019-08-03] MEDS: CATAPRES PO SCH ×2 (08:01→13:52)
[2019-08-03] MEDS: ZITHROMAX 500 MG/NS 500 MG/250 ML IVPB IV SCH (08:01)
[2019-08-03] MEDS: MAXIPIME 1 GM in NS 50 ML IV SCH (08:01)
[2019-08-03] MEDS: LOPRESSOR PO SCH (08:01)
[2019-08-03] MEDS: KLOR-CON PO SCH (08:02)
[2019-08-03] MEDS: LIPITOR PO SCH (08:02)
[2019-08-03 08:31] LABS: BASO# 0.03 X1000 (0.0-0.2); BASO% 0.2 % (0.0-0.8); EOS# 0.24 X1000 (0.0-0.7); EOS% 1.2 % (0.0-10.0); HEMATOCRIT 28.1 % (42.0-52.0); HEMOGLOBIN 8.5 g/dL (14.0-18.0); IMM GRAN# 0.16 X1000 (0.0-0.04); IMM GRAN% 0.8 % (0.0-0.5); LYMPH# 8.52 X1000 (1.2-3.4); LYMPH% 44.3 % (20.5-51.1); MCH 25.4 PG (27-31); MCHC 30.2 g/dL (33-37); MCV 84.1 FL (81-99); MONO# 0.93 X1000 (0.11-0.59); MONO% 4.8 % (1.7-9.3); MPV 9.8 FL (7.4-10.4); NEUT# 9.35 X1000 (1.4-6.5); NEUT% 48.7 % (42.2-75.2); PLT 420 X1000 (130-400); RBC 3.34 XMIL (4.7-6.1); WBC 19.23 X1000 (4.8-10.8)
[2019-08-03] MEDS: ALLEGRA PO SCH (08:49)
[2019-08-03 08:55] LABS: AGAP 14; ALBUMIN 2.7 g/dL (3.5-5.0); BUN 34 mg/dL (8-22); CALCIUM 8.8 mg/dL (8.8-10.2); CHLORIDE 102 mmol/L (98-107); COSMO 291; ESTIMATED GFR > 60; GLUCOSE 131 mg/dL (70-104); MAGNESIUM 2.4 mg/dL (1.5-2.7); PHOSPHORUS 3.8 mg/dL (2.7-4.5); POTASSIUM 3.6 mmol/L (3.5-5.1); SODIUM 141 mmol/L (136-145); TCO2 25 mmol/L (25-35)
--- NOTE | 2019-08-03 09:13 | Diag Imaging Result Doc PS360 ---
EXAM: CHEST-PORTABLE 08/03/2019 HISTORY: abnormal exam TECHNIQUE: AP portable upright at 0902 COMMENT: There are alveolar opacities throughout the left lung and in the right lower lobe. This was also the case at the time the previous study of 08/02/2019. It is definitely worse than on 07/29/2019. IMPRESSION: Pulmonary edema and/or pneumonia. Electronically signed by Wade Traore 08/03/2019 9:11 AM
[2019-08-03] MEDS ORDERED: LASIX IV ONE (09:39)
[2019-08-03] MEDS ORDERED: LASIX IV SCH ×2 (09:45→21:00)
[2019-08-03] MEDS ORDERED: SODIUM CHLORIDE 0.9% INJ PRN (09:50)
[2019-08-03] MEDS ORDERED: PHENERGAN IV PRN (09:50)
[2019-08-03] MEDS ORDERED: ATIVAN IV PRN (09:55)
[2019-08-03] MEDS ORDERED: LABETALOL IV PRN (09:55)
--- NOTE | 2019-08-03 10:59 | PROGRESS NOTE ---
DATE: 08/03/2019 INTERVAL HISTORY: Mr. Osborne Was transferred to ICU. He was intermittently on BiPAP and Ventimask. He was occasionally uncomfortable on BiPAP, so he was switched to Ventimask. He continues to have cough with expectoration. He feels his hemoptysis is decreasing in amount. He continues to feel terrible and short of breath. He was feeling nauseous and though he has not vomited, he would want a stronger medication for his nausea since the Zofran did not work. Discussed about differential diagnosis. I answered all of his questions. VITAL SIGNS: Temperature of 98.8 degrees, pulse 75, respiratory rate 20, blood pressure 160/60. He is saturating 92 to 95 percent on Venturi mask. PHYSICAL EXAMINATION: General: He appears in mild distress because of shortness of breath. HEENT: Oral cavity is moist. Lungs: He has inspiratory crackles bilateral lung mireles more pronounced on the bases. Cardiovascular: S1, S2 normal. Tachycardic. Systolic murmur affecting second intercostal space. No gallop. Abdomen: Soft, nontender. He has positive hepatojugular reflex. He has bilateral lower extremity edema. He has a urine catheter. LABORATORY: Suggestive of persistent leukocytosis, normocytic anemia, likely anemia of acute blood loss. He has normal kidney function except elevated BUN. His proBNP was elevated to 9000. Microbiology: Influenza screen was unremarkable. IMAGING: Chest x-ray today suggests pulmonary edema and/or pneumonia. ASSESSMENT AND PLAN: 1. Acute hypoxic respiratory failure due to bilateral multifocal pneumonia, acute pulmonary edema, suspected alveolar hemorrhage. Continue intravenous vancomycin cefepime and azithromycin. Follow up repeat sputum culture results, urine antigens and beta glucan levels. Continue Ventimask and BiPAP cycle as tolerated. 2. Acute congestive heart failure exacerbation with worsening pedal edema. Continue intravenous Lasix. Echocardiogram result is pending. I will continue him on beta blockers. Hydralazine has been on hold considering ongoing hemoptysis. I am increasing the metoprolol dose. 3. Hemoptysis leading to acute blood loss anemia status post 2 units of packed red blood cells. His hemoptysis is decreasing in amount as per his report. Use of Eliquis, aspirin, multifocal pneumonia, alveolar hemorrhage could be contributing factors. I am holding both aspirin and Eliquis and closely monitoring his respiratory status. Connective tissue cascade, antiglomerular basement membrane antibodies, antineutrophilic cytoplasmic antibodies have been ordered 4. History of coronary artery disease requiring coronary artery bypass graft in 2018, bovine aortic valve replacement in 2018 and paroxysmal atrial fibrillation. Continue to hold Eliquis and aspirin. Continue beta orquidea, clonidine for essential hypertension. Continue atorvastatin. DISPOSITION: Patient's condition is critical. More than 30 minutes of critical care time was spent taking care of this patient. Plan of care was discussed with him. His questions have been answered. I will appreciate Pulmonology, Cardiology, and Infectious Disease recommendations. cc: Ifeanyi Tesfaye MD
[2019-08-03] MEDS ORDERED: LOPRESSOR IV ONE (11:15)
[2019-08-03] MEDS ORDERED: LOPRESSOR PO ONE (11:18)
[2019-08-03 11:20] LABS: ALLEN TEST YES; BE 2.8 mmoll (-3.0-3.0); BLOOD TYPE ARTERIAL; METHB 0.6 % (0.0-1.5); O2(CT) 12.5 mL/dL (15.0-23.0); O2HB 92.2 % (95.0-99.0); PCO2(98.6) 40 mmHg (35-45); PO2(98.6) 59 mmHg (60-100); SAMPLE BLOOD; SAO2 94.8 % (95.0-100.0); THB 9.6 g/dL (11.5-17.4); pH(98.6) 7.44 (7.35-7.45)
[2019-08-03 11:22] LABS: MODALITY VENTIMASK
[2019-08-03] MEDS ORDERED: CARDIZEM IV ONE (12:07)
[2019-08-03] MEDS ORDERED: MYCOSTATIN SUSP PO SCH (13:00)
[2019-08-03] MEDS ORDERED: LOPRESSOR PO SCH (13:00)
[2019-08-03] MEDS ORDERED: CARDIZEM 100 MG/NS 100 MG/100 ML IVPB IV SCH (13:00)
--- NOTE | 2019-08-03 13:08 | EKG Report ---
Test Performed on : 08/03/2019 11:02:38 AM Test Reason : AFIB Blood Pressure : / mmHG Vent. Rate : 143 BPM Atrial Rate : 156 BPM P-R Int : 000 ms QRS Dur : 094 ms QT Int : 318 ms P-R-T Axes : 000 030 217 degrees QTc Int : 490 ms Atrial fibrillation. with rapid ventricular response. with premature ventricular or aberrantly conduc nicci complexes. Marked ST abnormality, possible inferior subendocardial injury Abnormal ECG When compared with ECG of 03-AUG-2019 06:42, Atrial fibrillation. has replaced Sinus rhythm. Vent. rate has increased BY [address] now depressed in Anterior leads Confirmed by Sole GUTIERREZ, Daniel ([id number]) on 08/04/2019 10:40:49 AM
--- NOTE | 2019-08-03 13:41 | PROVIDER PROGRESS NOTE ---
Progress Note Pulmonary additional note: Patient refused isolation and moving to another room. Clinically with low calcitionin, CT findings and CHF. It is less likely to be TB.
--- NOTE | 2019-08-03 13:43 | ECHO REPORT ---
ORDER DATE: 08/02/2019 INTERPRETING PHYSICIAN: Nba Brenner MD. ECHOCARDIOGRAPHIC MEASUREMENTS: 1. Interventricular septum 1.3. 2. Left ventricular posterior wall 1.2. 3. Diastolic diameter 5.2. 4. Left atrium 4.7. 5. Aorta 4.8. FINDINGS: 1. Bioprosthetic valve in the aortic position was stable. Mitral valve was normal. There is mitral annular calcification. Tricuspid valve was normal. 2. There is mild mitral regurgitation, mild tricuspid regurgitation. Peak velocity across the tricuspid valve was 3 m/sec. Pulmonary artery systolic pressure 46 mmHg. Peak velocity across the aortic valve was 3.5 m/sec with a mean gradient of 28 mmHg. Aortic valve area of 1.2 cm2 in keeping with bioprosthetic valve. There is no aortic regurgitation. 3. Normal left ventricular cavity size. Estimated ejection fraction of 60 to 65 percent. There is mild left ventricular hypertrophy. 4. Technically suboptimal study. Poor acoustic window. 5. There is no pericardial effusion. cc: MD Ifeanyi Colby MD
[2019-08-03] MEDS ORDERED: OFIRMEV 1000 MG/ISOTONIC SOLN 1,000 MG/100 ML BOTTLE IV PRN (13:57)
[2019-08-03] MEDS ORDERED: DUONEB (A & A) INH PRN (14:02)
--- NOTE | 2019-08-03 14:06 | PULMONOLOGY PROGRESS NOTE ---
DATE: 08/03/2019 CHANGE OF CARE NOTE Dr. Albania Loyd notified me this morning that he was already seeing this patient. Please refer management questions to him. cc: Silvestre Godinez MD
--- NOTE | 2019-08-03 14:10 | INFECTIOUS DISEASE PROGRESS NO ---
DATE: 08/03/2019 PRESENT ILLNESS: The patient has bilateral pulmonary infiltrates and hemoptysis. 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 Patient is developing oral candidiasis. MEDICATIONS: Currently, the patient is on azithromycin, cefepime, and vancomycin. PHYSICAL EXAMINATION: Vital Signs: Temperature is 98.8 degrees, pulse 72, respirations 20, blood pressure 165/68. General: This is an ill-appearing elderly male. He is in no acute distress. Head/eyes/ears/nose/throat: He can hear my spoken words and see near objects. There is some white coating to the patient's tongue suggestive of candidiasis. Neck: No stiffness. Lungs: Bilateral rales. Cardiovascular: Heart rate was regular. There was one time when I heard 2 or 3 beats that appeared to be irregular. Abdomen: Soft and nontender. Neurologic: The patient is awake. He can move his extremities. He does not have a tremor. LAB AND X-RAY: Chest x-ray shows bilateral opacities. [place] [address], hemoglobin 8.5, platelet count 420,000, creatinine is 1. GFR is greater than 60. Sputum culture showed normal maryan. Swab for influenza was negative. Chest x-ray showed bilateral opacities. ASSESSMENT AND PLAN: Patient has bilateral infiltrates, most likely infectious in nature. I agree with continuing azithromycin, cefepime, and vancomycin. I have ordered a QuantiFERON Gold test and also I have ordered sputums for AFB smear and culture. Patient also has oral candidiasis. My plan is to start the patient on nystatin swish and swallow. COMORBIDITIES: The patient is elderly. He has coronary artery disease, history of a myocardial infarction and renal stones. cc: Alexi Zavaleta MD
[2019-08-03] MEDS: DILAUDID IV PRN (14:38)
[2019-08-03] MEDS: ATIVAN IV PRN ×2 (14:38→22:54)
--- NOTE | 2019-08-03 15:43 | PROGRESS NOTE ---
DATE: 08/03/2019 I was informed by the nurse that the patient had decided to just be comfort measures only, and he had taken his oxygen mask off. I immediately evaluated the patient. Pulmonology team is also in the room right now. Mr. Osborne understands that he has pneumonia and suspected alveolar hemorrhage and congestive heart failure. He understands that he is on antibiotics and diuretics. He understands that it may take a while before these medications could work. However, he states that he knows his time had come up and he states that he just wanted to be comfortable in that situation. He did not want any additional medications or even oxygen mask because it was making him uncomfortable. He knows that he could if he does not get treatment for his condition and he in fact wanted to pass peacefully. We will initiate comfort measures only. We will give him intravenous opioids and intravenous antianxiety medications as needed to address anxiety and pain and palliative care team will be consulted. I conveyed this decision to patient's nurse that we would respect his wishes. The patient's family is at bedside. I explained to them about the situation. I explained to them about the patient's medical condition and patient's wishes and they all are in agreement. cc: Ifeanyi Tesfaye MD
[2019-08-03] MEDS ORDERED: MAXIPIME 2 GM/NS 2 GM/100 ML IVPB IV SCH (16:00)
--- NOTE | 2019-08-03 20:05 | Extremity Venous Study ---
PROCEDURE NAME: Venous U/S Bilateral Legs - 08/02/2019 STUDY: Bilateral lower extremity venous ultrasound. FERTILIZER APPLICATOR: Autumn. REQUESTING PHYSICIAN: Soniya Thompson. INDICATION: Shortness of breath. Patient is on BiPAP. FINDINGS: Deep and superficial veins of bilateral lower extremities visualized along their course. Vessels compressible with forward flow and no evidence of intraluminal thrombus. Reflux maneuver with Valsalva was not performed due to the patient's shortness of breath. IMPRESSION: No deep or superficial venous thrombosis seen in bilateral lower extremities. cc: MD Soniya Melvin PA
[2019-08-03] MEDS ORDERED: GEODON IM ONE (22:58)
[2019-08-03] MEDS ORDERED: STERILE WATER INJ. INJ ONE (22:58)
[2019-08-03] MEDS ORDERED: STERILE WATER INJ. ONE (23:08)
[2019-08-03] MEDS ORDERED: GEODON ONE (23:08)
[2019-08-04] MEDS ORDERED: DILAUDID IM PRN (01:05)
[2019-08-04] MEDS: DILAUDID IV PRN (01:24)
[2019-08-04] MEDS: ATIVAN IM PRN ×4 (02:34→22:11)
--- NOTE | 2019-08-04 15:11 | PROGRESS NOTE ---
DATE: 08/04/2019 INTERVAL HISTORY: Mr. Osborne has decided to be Do Not Resuscitate level 1, comfort measures only. So yesterday his antibiotics and other aggressive medications were stopped and he was started on intravenous opioids, intravenous benzodiazepines to address his pain anxiety and discomfort. Overnight, he was a little agitated, requiring multiple doses of medications to help him calm down. Also, he required a dose of intramuscular ziprasidone after which he was comfortable. I was informed that it was felt that he was having some bladder spasm related to presence of Baldwin catheter, so I decided to discontinue it. SUBJECTIVE: Mr. Osborne is currently sedated in a sitting position in a bed. His daughter is at bedside. Mr. Osborne does not appear to be in any distress. OBJECTIVE: Vital Signs: Temperature of 98.3 degrees, pulse 150, respiratory rate 22, blood pressure 126/65. He is saturating 99% on 6 L nasal cannula. General: Appears comfortable. Lungs: He has diffuse crackles affecting left side supramammary and inframammary lung mireles. He also has inspiratory crackles right inframammary region. No wheeze. Cardiovascular: S1, S2 normal. Irregularly irregular, tachycardic. Mild systolic murmur affecting right second intercostal space. Abdomen: Soft, nontender. No suprapubic dullness to percussion. Extremities: Bilateral lower extremity edema. Genitourinary: He does not have urine catheter. LABORATORY DATA: No labs were drawn. ASSESSMENT AND PLAN: 1. Acute hypoxic respiratory failure and sepsis due to bilateral multifocal pneumonia. 2. Suspected alveolar hemorrhage. 3. Atrial fibrillation with rapid ventricular rate. 4. Acute systolic congestive heart failure exacerbation. 5. Hemoptysis. 6. Chronic lymphoid leukemia. PLAN: The patient is comfort measures only. I will continue to address his anxiety, pain, agitation and discomfort with intramuscular hydromorphone, intramuscular lorazepam and intravascular ziprasidone as needed. He had pulled out his IV line. Apparently, the patient's daughter is at bedside and I had a discussion with her about the patient's clinical condition. I showed her CT scan images to explain to her about the gravity of pneumonia he had developed. I answered all of her questions. She does not think the patient could go home on home hospice since he used to live with his brother who may not be able to take care of him. We will keep him inside the hospital. The palliative care team and hospice team on board. cc: Ifeanyi Tesfaye MD
[2019-08-04] MEDS: DILAUDID IM PRN (15:12)
[2019-08-04 23:05] LABS: ANTINEUTROPHIL CYTOPLASMIC AB SEE COMMENTS; CYTOPLASMIC NEUTROPHILIC AB SEE COMMENTS
[2019-08-04] MEDS: GEODON IM PRN (23:58)
[2019-08-04] MEDS ORDERED: STERILE WATER INJ. ONE (23:58)
[2019-08-05] MEDS: ATIVAN IM PRN ×3 (02:41→19:22)
[2019-08-05] MEDS: DILAUDID IM PRN (06:46)
--- NOTE | 2019-08-05 14:59 | PROGRESS NOTE ---
DATE: 08/05/2019 INTERVAL HISTORY: No acute events overnight. He did receive a dose of lorazepam, Geodon and Dilaudid overnight. SUBJECTIVE: He is asleep. He does flicker his eyes to strong verbal stimuli but does not follow commands. VITAL SIGNS: Temperature of 98.7 degrees, pulse 154, respiratory rate 22, blood pressure 115/76, saturating at 87% on 6 L nasal cannula. PHYSICAL EXAMINATION: General: He appears comfortable. He has diffuse crackles affecting left lung mireles and crackles affecting the right inframammary region. Cardiovascular: S1, S2 normal. Irregularly irregular. No murmur, rub, or gallop. Tachycardic. Abdomen: Soft, nontender. No suprapubic tenderness. Extremities: Bilateral lower extremity edema. Neurologic: He is drowsy. He flickers his eyes to strong verbal stimuli. He appears comfortable on my evaluation. LABORATORY DATA: No new labs. ASSESSMENT AND PLAN: 1. Acute hypoxic respiratory failure and sepsis due to bilateral multifocal lung infiltrates and pneumonia. His peripheral ANCA came positive, suspected alveolar hemorrhage. 2. Atrial fibrillation with rapid ventricular rate. 3. Acute systolic congestive heart failure exacerbation. 4. Hemoptysis. 5. CLL. PLAN: The patient is do not resuscitate level 1, comfort measures only. I will continue to address his pain, anxiety and discomfort with albuterol ipratropium nebulization, hydromorphone, lorazepam, acetaminophen and ziprasidone intramuscular or intravenous as appropriate as needed. Previously he could not go to home with home hospice and he could not qualify for [facility]. Hospice team on board. Plan of care discussed with the nursing team. cc: Ifeanyi Tesfaey MD [facility]
--- NOTE | 2019-08-05 20:52 | PROGRESS NOTE ---
DATE: 08/05/2019 ADDENDUM: I was informed by the nursing team that the patient had a few questions and concerns regarding Mr. Osborne's clinical condition, so I evaluated Mr. Gonzalez at bedside. I met with the son. Currently his sister in her [id number] and some of the other family members were also at bedside. The patient's son raises his concern that probably Mr. Osborne did not have understanding of his pneumonia well, and he might have thought that pneumonia was uncurable. I explained to Mr. Girons in detail about the course of events. In terms of his clinical illness, I explained to him that Mr. Osborne had been at the [facility] for almost 5 to 6 days, where he was being treated for pneumonia with hemoptysis, and though he was on antibiotics, he did not show much improvement and was transferred over to [facility]. I explained to him that usually a [id number] pneumonia would respond within the first 2 to 3 days of antibiotics, but unfortunately Mr. Osborne did not, when he was sent over to [facility]. I explained to Mr. Osborne's son that when I saw him on the 1st floor, I had serious concerns over his pneumonia and his ability to maintain oxygen, and so I had decided to transfer him to the PVC unit. At that time I had reviewed the images of his chest CT scan with Mr. Osborne and explained to him that he had extensive pneumonia affecting the left lung and part of the right lung, and then also mentioned that I was anticipating increasing need of oxygen at that time. Mr. Osborne had specifically mentioned that he did not want any chest compressions or intubation if we reached that stage. I also explained to him that the next day in the PVC unit, his oxygen requirement indeed increased, and I had to start him on high-pressure oxygen mask and later on transfer him to the ICU. I explained to Mr. Osborne's son that Mr. Gonzalez did have understanding of the worsening nature of his pneumonia, possible etiologies including bacterial and atypical pneumonia, and possibility of alveolar hemorrhage. I explained to him that Mr. Osborne did understand that it was possible that the pneumonia might not get better. At the same time, he also understood that it was hard for me to make an exact prediction. I wanted to treat him with broad-spectrum intravenous antibiotics and stop his anticoagulation and antiplatelet medication; however, considering that Mr. Osborne himself had been in the hospital for almost 7 days without much clinical improvement, he himself had decided to be comfortable rather than pursuing aggressive measures, which at that time of making the decision, had not helped him much. Mr. Osborne's son understood the entire scenario, and I answered all of his questions appropriately. We will continue comfort measures only. cc: Ifeanyi Tesfaye MD
[2019-08-05] MEDS: GEODON IM PRN (23:17)
[2019-08-06] MEDS: DILAUDID IM PRN ×5 (00:03→22:24)
[2019-08-06] MEDS: ATIVAN IM PRN ×4 (07:50→21:12)
[2019-08-06] MEDS ORDERED: PHENERGAN IM PRN (14:44)
[2019-08-06] MEDS ORDERED: HALDOL IM PRN (14:57)
[2019-08-06] MEDS ORDERED: DURAGESIC 12 MICROGM/HR PATCH TD SCH (16:15)
--- NOTE | 2019-08-06 17:07 | PROGRESS NOTE ---
DATE: 08/06/2019 INTERVAL HISTORY: The patient had a fall at nighttime when he was trying to come out of bed and hit his head. Unfortunately, in the morning time on review of medication list, it appears that though Ativan was ordered 1 mg every 2 hours, yesterday he received only 3 doses and today so far 2 doses since morning. The Dilaudid he only received 1 dose yesterday and 3 doses so far today. Patient's family is currently at bedside and they had several concerns about the course of events. VITAL SIGNS: Temperature 97.7 degrees, pulse 69, respiratory rate 21, blood pressure 160/82, saturating 96% on Ventimask. PHYSICAL EXAMINATION: General: He currently appears comfortable at the time of my encounter. Lungs: He does have diffuse crackles affecting the left hemithorax. He has bronchial breath sounds right suprascapular region and inspiratory crackles on right infrascapular region. Heart: He has an irregularly irregular heart rate with tachycardia. Abdomen: Appears soft, nontender. Extremities: He has bilateral lower extremity edema. Neurologic: He is sleepy. LABS: No labs. Unfortunately, 1 of the blood tests was drawn yesterday that I was not aware of. It was not ordered by me. MICROBIOLOGY: No positive data so far. ASSESSMENT: 1. Acute hypoxic respiratory failure and sepsis due to bilateral multifocal lung infiltrates, pneumonia, suspected alveolar hemorrhage, pulmonary edema. 2. Atrial fibrillation with rapid ventricular rate. 3. Acute systolic congestive heart failure exacerbation. 4. Hemoptysis. 5. Chronic lymphocytic leukemia. PLAN: The patient is do not resuscitate level 1, comfort measures only. Considering he has been a little agitated, I will start him on the lowest dose of fentanyl patch. I also ordered haloperidol 5 mg every 4 hours on top of intramuscular hydromorphone and lorazepam that he can receive every 2 hours. I addressed the patient's multiple family members at bedside concerns including his [id number], daughter. I informed them that he should have received more frequent medications to calm his anxiety and pain if he was in discomfort. However, the daughter raised concern that she had requested some medications yesterday, but the patient did not receive it and I assured her that I would bring this up with the charge nurse. I assured them that my goal was to provide him care to address his discomfort, anxiety, pain, and agitation. I also discussed with her that if the patient becomes uncomfortable on Ventimask, then we would put him back on nasal cannula. However, on nasal cannula, it would be expected that his oxygen levels would go down. However, at this stage, our goal was not to treat numbers but to treat his discomfort and they are all in agreement. The family also raises concerns about home hospice versus GIP versus other form of hospital care and insurance issues associated with that. However, they all agree that currently the patient has need of multiple medications and he has frequent episodes of agitation and a constant presence of family member 24 hours around him, most likely would not be possible at home. I assured them that in that situation home hospice could not be an option for him. I also advised them that regarding the inpatient GIP, palliative care and hospice care team would provide them more information. From my end, I will provide him care to make him more comfortable. I went to the charge nurse and conveyed all the concerns that the patient's family had raised including the frequency of pain medication that he was supposed to be getting yesterday and did not. I also raised concerns that the patient should be really in bedrest and should have frequent evaluation for his pain and discomfort. cc: Ifeanyi Tesfaye MD
[2019-08-07] MEDS: ATIVAN IM PRN ×6 (00:55→21:25)
[2019-08-07] MEDS: DILAUDID IM PRN ×6 (02:36→21:17)
--- NOTE | 2019-08-07 08:14 | PROGRESS NOTE ---
DATE: 08/07/2019 INTERVAL HISTORY: No acute events overnight. SUBJECTIVE: Mr. Osborne is sedated. He does however opens eye to strong verbal stimuli. He is on Ventimask right now and appears comfortable. VITALS: Temperature 98.4 degrees, pulse 79. His respiratory rate is on the lower side; it is 9 per minute. Blood pressure 134/67, saturating 95% on Ventimask. PHYSICAL EXAMINATION: General: Not in any distress. Pulmonary: He has diffuse crackles, left hemithorax. He has crackles affecting right inframammary region, bronchial breath sounds on right supramammary region. Cardiovascular: S1, S2. Irregularly irregular, tachycardic. No rub or gallop. Abdomen: Soft. Extremity: Bilateral lower extremity edema. Neurologic: He is drowsy, but arousable to strong verbal stimuli. Does not verbalize. LABS AND X-RAYS: No labs. No imaging. ASSESSMENT AND PLAN: 1. Acute hypoxic respiratory failure and sepsis due to bilateral multifocal lung infiltrate. 2. Pneumonia. 3. Suspected alveolar hemorrhage and pulmonary edema. 4. Atrial fibrillation with rapid ventricular rate. 5. Hemoptysis. 6. Chronic lymphocytic leukemia. PLAN: The patient is do not resuscitate level 1 and comfort measures only. I will continue to address his discomfort, anxiety, pain and agitation with as-needed haloperidol, hydromorphone, lorazepam. I will keep him on fentanyl patch which seems to be helping him a little bit. He will also receive albuterol ipratropium nebulization as needed. On review of the medication summary, it looks like he received 4 doses of intramuscular Ativan, 5 doses of intramuscular hydromorphone yesterday. So, he does have need for frequent antianxiety and analgesic medications. I will keep the family updated. Currently there are no family members at bedside. cc: Ifeanyi Tesfaye MD
[2019-08-08] MEDS: DILAUDID IM PRN ×5 (00:07→11:53)
[2019-08-08] MEDS: ATIVAN IM PRN ×5 (00:25→11:56)
[2019-08-08 12:50] VITALS: BP 95/58
[2019-08-12 14:41] LABS: RIBOSOME P AB SEE COMMENTS
--- NOTE | 2019-08-17 12:52 | DISCHARGE SUMMARY ---
ADMISSION DATE: 07/28/2019 DISCHARGE DATE: 08/08/2019 FINAL DISCHARGE DIAGNOSES: 1. Acute hypoxemic respiratory failure. 2. Sepsis. 3. Bilateral lobe pneumonia. 4. Acute pulmonary edema. 5. Alveolar hemorrhage. 6. Atrial fibrillation with rapid ventricular response. 7. Chronic lymphocytic leukemia. CONSULTATIONS: 1. Pulmonary consultation with Dr. Loyd. 2. ID consultation with Dr. Zavaleta. IMAGING: Chest CT performed on 07/30/2019 that reveals worsened pneumonia and bilateral pleural effusion. HOSPITAL COURSE: Mr. Osborne is a 79-year-old male with a history of multiple medical problems who was initially brought to the ER with a chief complaint of hemoptysis. A chest CT was done that revealed pneumonia and bilateral pleural effusions. The patient was initially admitted to [facility], and transferred to [facility] for further treatment and evaluation by the ammunition components inspector. The patient was started on broad-spectrum antibiotics. ID as well as Pulmonary Medicine was consulted. Blood cultures were obtained as well as sputum cultures. Antibiotics were adjusted as per the recommendations of Dr. Zavaleta. Despite therapy, the patient's clinical status continued to worsen. This was discussed with the patient and his son and both opted for comfort measures only. Palliative care was consulted for assistance with initiating the comfort measures. On 08/08/2019 at 13:58, the patient was pronounced . The patient had no heart tones, breath sounds or corneal reflexes. The patient's family was notified of the patient's . cc: Neema Manning MD
== END 2019-08-08 13:58 | disposition expired | DRG 871 ==
LOC: P.ED 19:38 → SUATTDRO 07-28 00:56 → P.MEDSURG 07-28 00:56 → 1N 08-01 17:30 → 2N 08-01 21:49 → ICU 08-02 22:06 → 4N 08-04 11:33
PROVIDERS: ATTEND Internal Medicine